=== PATIENT | female | born 1975 | race Caucasian/White ===

== ENCOUNTER 2023-04-28 13:18 | Emergency (ER) | payer MEDICAID ==
[~2023-04-28] VITALS: Ht 170.2 cm; Wt 79.0 kg
[2023-04-28 13:32] VITALS: O2SAT 97
[2023-04-28] MEDS ORDERED: KETOROLAC 60MG/2ML VIAL IM ONE (14:30)
[2023-04-28] MEDS ORDERED: KETOROLAC 60MG/2ML VIAL IM NR (17:00)
[2023-04-28] MEDS ORDERED: NAPR-1176 MT (18:38)
[2023-04-28] MEDS ORDERED: HYDR-4001 MT (18:38)
[2023-04-28 19:21] VITALS: BP 130/89; PULSE 87; RESP 19; TEMP 97.8
== END 2023-04-28 19:23 | disposition home or self-care (01) ==
LOC: ER 13:21
DX: M54.50 Low back pain, unspecified (principal); E11.9 Type 2 diabetes mellitus without complications; W01.0XXA Fall on same level from slipping, tripping and stumbling without subsequent striking against object, initial encounter; Y93.89 Activity, other specified; Y92.89 Other specified places as the place of occurrence of the external cause; Y99.8 Other external cause status
CPT/HCPCS: 99285; 72131; 81025; 72192; 96372; J1885